=== PATIENT | female | born 1950 | race Caucasian/White ===

== ENCOUNTER 2024-09-29 16:50 | Emergency (ER) | payer MEDICAID, MEDICARE ==
[2024-09-29 19:10] VITALS: BP 112/74; PULSE 85
== END 2024-09-29 20:00 | disposition home or self-care (01) ==
LOC: JP.ED 16:50
DX: S02.2XXA Fracture of nasal bones, initial encounter for closed fracture (principal); I10 Essential (primary) hypertension; Z79.899 Other long term (current) drug therapy; Z79.1 Long term (current) use of non-steroidal anti-inflammatories (NSAID); Z88.2 Allergy status to sulfonamides; W19.XXXA Unspecified fall, initial encounter
CPT/HCPCS: 70450; 70486; 99284